=== PATIENT | male | born 1955 | race Caucasian/White ===

== ENCOUNTER 2022-05-09 14:24 | Emergency (ER) | payer MEDICARE, OTHER, SELFPAY ==
[2022-05-09] VITALS (30 sets, daily range): BP systolic 103–133; BP diastolic 77–92; PULSE 64–83; RESP 16–30; TEMP 36.4; O2SAT 97–100
--- NOTE | ~2022-05-09 | XR_ITS ---
XR chest 1V portable DATE: 05/09/2022 17:14 INDICATION: Hypotension. Covid-positive since 05/07/2022 TECHNIQUE: Portable AP chest on 05/09/2022 at 1709 hours COMPARISON: 11/19/2018 PA and lateral chest FINDINGS: Status post sternotomy. Borderline heart size. Aortic arch calcification. No hilar or mediastinal enlargement. Probable chronic interstitial changes involving the lower lung zones primarily. No consolidation, ple ural effusion, pulmonary vascular congestion or pneumothorax is detected. Osteopenia. IMPRESSION: Status post sternotomy Probable chronic interstitial changes in the lower lung zones No active disease or significant change other than sternotomy since 11/19/2018 Reviewed, dictated and finalized at location B.
--- NOTE | 2022-05-09 15:04 | ECG_ITS ---
Measurements Intervals [place] Rate: 61 P: 60 CT: 172 QRS: 10 QRSD: 146 T: 37 QT: 467 QTc: 473 Interpretive Statements SINUS RHYTHM RIGHT BUNDLE BRANCH BLOCK [120+ ms QRS DURATION, UPRIGHT V1, 40+ ms S IN I/aVL/V4/V5/V6] COMPARED TO ECG 11/23/2018 15:02:02 RIGHT BUNDLE-BRANCH BLOCK NOW PRESENT Electronically Signed On 05-09-2022 18:39:42 CDT by Mary Amado M.D.
[2022-05-09] MEDS: SODIUM CHLORIDE 0.9% IV 1,000 ML 999 ML IV CONT ×2 (15:27→17:17)
[2022-05-09 15:34] LABS: Basophils Percent Auto 0.4 % (0.2-1.2); Eosinophils Absolute Auto 0.3 K/mm3 (0-0.3); Eosinophils Percent Auto 5.2 % (0-4.4); Hematocrit 31.9 % (42.0-52.0); Hemoglobin 10.3 g/dL (14.0-18.0); Immature Granulocyte Absolute 0.05 K/mm3 (0.00-0.031); Immature Granulocyte Percent A 0.9 % (0-0.5); Lymphocytes Percent Auto 7.2 % (18.3-44.2); Mean Corpuscular HGB Conc 32.3 g/dl (32-36); Mean Corpuscular Hemoglobin 30.8 pg (26-34); Mean Corpuscular Volume 95.5 fl (80-100); Mean Platelet Volume 9.5 fl (7.4-10.4); Monocytes Absolute Auto 0.8 K/mm3 (0.1-0.6); Monocytes Percent Auto 14.9 % (2.6-8.5); Neutrophils Percent Auto 71.4 % (45.5-73.1); Platelet Count Result 200 k/mm3 (150-375); Red Blood Count 3.34 M/mm3 (4.6-6.20); Red Cell Distribution Width 15.6 % (11.5-14.5); White Blood Count 5.6 K/mm3 (4.5-10.0)
[2022-05-09 15:43] LABS: Alanine Aminotransferase 24 U/L (6-50); Albumin Level 2.9 g/dL (3.5-5.1); Alkaline Phosphatase 81 U/L (38-126); Anion Gap 11 mmol/L (8-16); Aspartate Amino Transferase 20 U/L (17-59); Bilirubin,Total 0.4 mg/dL (0.2-1.3); Blood Urea Nitrogen 48 mg/dL (9-20); Calcium 8.1 mg/dL (8.4-10.2); Carbon Dioxide 30 mmol/L (22-30); Chloride 82 mmol/L (98-107); Estimated CRCL calculation 6 ml/min; Estimated Glomerular Filt Rate 4; Glucose 99 mg/dL (65-110); Potassium 3.9 mmol/L (3.4-5.0); Sodium 123 mmol/L (137-145)
[2022-05-09 15:54] LABS: Troponin I < 0.012 ng/mL (0.000-0.034)
[2022-05-09 18:58] LABS: Troponin I 0.012 ng/mL (0.000-0.034)
--- NOTE | 2022-05-09 21:37 | ED.GENADULT ---
HPI - General Adult General Chief complaint: Recheck/Abnormal Lab/Rx Stated complaint: low bp Time Seen by Provider: 05/09/22 14:50 History of Present Illness HPI narrative: This is a 66-year-old male with history of end-stage renal disease on peritoneal dialysis, vasculitis hypertension presenting ED for low blood pressure. The patient has recent diagnosis of COVID-19 infection. He is going to an outpatient facility for monoclonal antibody junctions. While he At the outpatient clinic his blood pressure was 70/50. He was then sent to the emergency department for further evaluation. Patient states he has had decreased oral intake over the last several days. Otherwise he has no complaints this time. Related Data Home Medications Medication Instructions Recorded Confirmed Unable to Obtain Home Medications 05/09/22 05/09/22 Allergies Allergy/AdvReac Type Severity Reaction Status Date / Time No Known Allergies Allergy Verified 05/09/22 14:32 Review of Systems Review of Systems: CONSTITUTIONAL: Denies night sweats. EYES: No eye pain ENT: Denies rhinorrhea CARDIOVASCULAR: Denies palpitations RESPIRATORY: Denies hemoptysis GASTROINTESTINAL: Denies hematemesis GENITOURINARY: Denies hematuria. SKIN: Denies rash MUSCULOSKELETAL: Denies myalgia. NEUROLOGIC: Denies weakness. PSYCHIATRIC: Denies delusions [facility] Past Medical History Medical History (Updated 05/09/22 @ 22:04 by Ector Pérez MD) Diabetes ESRD (end stage renal disease) Hypertension Vasculitis Family History Family History Sibling Malignant neoplasm of prostate Mother Family history of emphysema Other Family history of cardiovascular disease Family history of malignant neoplasm Social History Social History Alcohol intake: current Exam Narrative: APPEARANCE: No apparent distress. Head atraumatic. EYES: PERRLA/EOMI, NOSE: Normal no drainage NECK: Supple, Trachea midline RESPIRATORY: CTAB, No increased work of breathing. CARDIOVASCULAR: S1S2 appreciated ABDOMINAL: Abdomen is distended, nontender, no guarding or rebound. MUSCULOSKELETAl: No obvious deformities NEURO: Alert. Moving 4/4 extremities SKIN:: Warm, dry. Normal color PSYCHIATRIC: Normal affect Course Vital Signs Vital signs: Vital Signs Temperature 97.5 F L 05/09/22 14:26 Pulse Rate 70 05/09/22 14:26 Respiratory Rate 16 05/09/22 14:26 Blood Pressure 113/87 05/09/22 14:26 Pulse Oximetry 97 05/09/22 14:26 Oxygen Delivery Room Air 05/09/22 14:26 Temperature 97.5 F L 05/09/22 14:26 Pulse Rate 73 05/09/22 19:54 Respiratory Rate 18 05/09/22 19:54 Blood Pressure 129/92 H 05/09/22 19:54 Pulse Oximetry 97 05/09/22 19:54 Oxygen Delivery Room Air 05/09/22 14:37 Medical Decision Making MDM Narrative Medical decision making narrative: This is a 66-year-old male presenting ED with hypotension. Patient has had decreased oral intake for last several days due to COVID-19 infection. He is given 2 L fluid. patient's lab work was significant for hyponatremia and hypochloremia. Patient states that he is typically hyponatremia. when I went to inform the patient of his lab results he said that he was feeling much better and he wanted to go home. I requested that he stay so we could repeat a basic metabolic panel to improve it is lab work was trending in the correct direction. The patient refused stating that he is hyponatremic frequently and he does not want wait for the lab work. I explained the risks to the patient and he has decided to leave against medical advice. Patient was instructed to follow up with primary care physician in next 2-3 days. I emphasized that he should return emergency department if his condition is to worsen in any way. He verbalizes understanding. Vital Signs Vital Signs: Vital Signs
== END 2022-05-09 20:03 | disposition left against medical advice (07) ==
PROVIDERS: Emergency Provider Emergency Medicine; PCP Physician Assistant
DX: U07.1 COVID-19 (principal); E86.0 Dehydration; I45.10 Unspecified right bundle-branch block; I12.0 Hypertensive chronic kidney disease with stage 5 chronic kidney disease or end stage renal disease; E11.22 Type 2 diabetes mellitus with diabetic chronic kidney disease; N18.6 End stage renal disease; Z99.2 Dependence on renal dialysis
CPT/HCPCS: 36415; 71045; 80053; 84484; 85025; 93005; 96360; 96361; 99213; 99283; A9270; G0463; J7030